=== PATIENT | female | born 1965 | race Caucasian/White ===

== ENCOUNTER 2017-11-09 18:08 | Emergency (ER) | payer OTHER ==
[~2017-11-09] VITALS: Ht 175.3 cm; Wt 60.0 kg
[2017-11-09 18:12] VITALS: BP 129/77; TEMP 97.6
[2017-11-09] MEDS ORDERED: CYMBALTA 60MG60 MG PO (18:38)
[2017-11-09 19:10] VITALS: PULSE 76
== END 2017-11-09 19:10 | disposition home or self-care (01) ==
LOC: COL.ER 18:08
DX: S93.402A Sprain of unspecified ligament of left ankle, initial encounter (principal); M79.7 Fibromyalgia; W10.9XXA Fall (on) (from) unspecified stairs and steps, initial encounter; X50.1XXA Overexertion from prolonged static or awkward postures, initial encounter; Y92.009 Unspecified place in unspecified non-institutional (private) residence as the place of occurrence of the external cause